=== PATIENT | female | born 1980 | race Caucasian/White ===

== ENCOUNTER → 2018-05-24 | Outpatient (CLI) | payer OTHER ==
[~2018-05-24] MED LIST: ARAVA10 MG; BIRTH CONTROL; CIPRO250 M1 PO; CIPRO500 MG; EMBREL; IBUPROFEN; IBUPROFEN 600600 M1; NORCO 5-325 TA1 EACH PO; ORTHO TRI-CYCL1 EACH; PREDNISONE; SIMPONI50 MG/0.1; TRAMADOL; XANAX 1 MG TABLE1 MG PO
--- NOTE | 2018-05-24 13:33 | 2DMMODE ---
[place] [address] 2 D/M-MODE ECHOCARDIOGRAM Name: CHRISTINA COSBY Room: [facility]#: [id number] Admission: 05/24/18 Attend Phys: Carlos Méndez, Discharge: Date of : 82 Date of Service: 05/24/18 1333 Report #: [id number] THIS REPORT FOR: //name// APPROVED REPORT Study performed: 05/24/2018 09:08:40 EXAM: Comprehensive 2D, Doppler, and color-flow Echocardiogram Patient Location: Out-Patient Status: routine BSA: 1.72 HR: 98 bpm BP: 120/88 mmHg Other Information Study Quality: Excellent Indications Palpitations 2D Dimensions IVSd: 8.84 (7-11mm) LVOT Diam: 20.90 (18-24mm) LVDd: 40.43 mm PWd: 8.43 (7-11mm) Ascending Ao: 25.00 (22-36mm) LVDs: 21.15 (25-40mm) Aortic Root: 21.74 mm Volumes Left Atrial Volume (Systole) LA ESV Index: 9.40 mL/m2 Aortic Valve AoV Peak Camilo.: 1.27 m/s AO Peak Gr.: 6.40 mmHg LVOT Max P.03 mmHg AO Mean Gr.: 3.47 mmHg LVOT Mean P.94 mmHg LVOT Max V: 1.00 m/s AO V2 VTI: 24.49 cm LVOT Mean V: 0.64 m/s CRISTAL (VTI): 2.66 cm2 LVOT V1 VTI: 18.97 cm Mitral Valve E/A Ratio: 1.11 MV Decel. Time: 223.77 ms MV E Max Camilo.: 0.72 m/s MV PHT: 64.89 [place] [address] 2 D/M-MODE ECHOCARDIOGRAM Name: CHRISTINA COSBY Room: [facility]#: [id number] Admission: 05/24/18 Attend Phys: Carlos Méndez, Discharge: Date of : 82 Date of Service: 05/24/18 1333 Report #: [id number] MVA (PHT): 3.39 cm2 TDI E/Lateral E': 4.80 E/Medial E': 6.00 Medial E' Camilo.: 0.12 m/s Lateral E' Camilo.: 0.15 m/s Pulmonary Valve PV Peak Camilo.: 1.24 m/s PV Peak Gr.: 6.16 mmHg Tricuspid Valve RAP Estimate: 5.00 mmHg TR Peak Gr.: 17.81 mmHg RVSP: 22.81 mmHg PA Pressure: 22.81 mmHg Left Ventricle The left ventricle is normal size. There is normal LV segmental wall motion. There is normal left ventricular wall thickness. Left ventricular systolic function is normal. The left ventricular ejection fraction is within the normal range. LVEF is 60-65%. The left ventricular diastolic function is normal. Right Ventricle The right ventricle is normal size. The right ventricular systolic function is normal. Atria The left atrium size is normal. The right atrium size is normal. Aortic Valve The aortic valve is normal in structure. No aortic regurgitation is present. There is no aortic valvular stenosis. Mitral Valve The mitral valve is normal in structure. There is no mitral valve regurgitation noted. No evidence of mitral valve stenosis. Tricuspid Valve The tricuspid valve is normal in structure. Mild tricuspid regurgitation. Pulmonic Valve The pulmonary valve is normal in structure. There is no pulmonic valvular [place] [address] 2 D/M-MODE ECHOCARDIOGRAM Name: CHRISTINA COSBY Room: [facility]#: [id number] Admission: 05/24/18 Attend Phys: Carlos Méndez, Discharge: Date of : 82 Date of Service: 05/24/18 1333 Report #: [id number] Great Vessels The aortic root is normal in size. IVC is normal in size and collapses >50% with inspiration. Pericardium There is no pericardial effusion. <Conclusion> Left ventricular systolic function is normal. The left ventricular ejection fraction is within the normal range. <ELECTRONICALLY SIGNED> By: Ryan Robertson MD, FACC 05/24/181332 32 32 Ryan Robertson MD, FACC /INF
== END ==
LOC: M.CRD 08:44
DX: R00.2 Palpitations (principal)

== ENCOUNTER → 2019-07-31 | Outpatient (CLI) | payer OTHER | LOC: M.ULTRA 07-09 11:49 | DX: N85.4 Malposition of uterus (principal); N92.0 Excessive and frequent menstruation with regular cycle; R10.84 Generalized abdominal pain ==